=== PATIENT | female | born 1990 | race Caucasian/White ===

== ENCOUNTER 2016-07-26 23:30 | Inpatient (IN) | payer MEDICAID, OTHER ==
[~2016-07-26] VITALS: Ht 157.5 cm; Wt 72.1 kg
[2016-07-26] MEDS ORDERED: SODIUM CHLORIDE 0.9% 1,000 ML IV ONE (23:58)
[2016-07-26] MEDS ORDERED: MORPHINE SULFATE 4 MG/ML CPJ (NOT FOR IM USE) IV STA (23:58)
[2016-07-26] MEDS ORDERED: ONDANSETRON HCL 4MG/2ML VIAL IV STA (23:58)
[2016-07-27] MEDS ORDERED: VANCOMYCIN 1 G PREMIX 200 ML IV ONE
[2016-07-27] MEDS ORDERED: PIPERACILLIN/TAZ 3.375G PREMIX 50 ML IV ONE
[2016-07-27 00:20] LABS: HEMATOCRIT. 42.8 % (36.0-48.0); HEMOGLOBIN. 14.7 g/dL (12.0-16.0); MEAN CORPUSCULAR HEMOGLOBIN 29.9 pg (28.0-32.0); MEAN CORPUSCULAR VOLUME 86.9 fL (81.0-99.0); MEAN PLATELET VOLUME 7.9 fl (7.4-10.4); PLATELET 276 x1000/uL (130-400); RED BLOOD CELL COUNT 4.93 mill/uL (4.2-5.4); RED CELL DISTRIBUTION WIDTH 14.2 % (11.6-14.6)
[2016-07-27 00:27] LABS: PROTHROMBIN TIME 9.9 sec
[2016-07-27 00:34] LABS: CHLORIDE 99 mEq/L (98-107)
[2016-07-27 00:43] LABS: CARBON DIOXIDE 25 mEq/L (21-32)
[2016-07-27 00:51] LABS: PLATELET ESTIMATE NORMAL
[2016-07-27] MEDS ORDERED: SODIUM CHLORIDE 0.9% 1000ML BAG (SEPSIS BOLUS) IV ONE (04:15)
[2016-07-27 08:37] VITALS: BP 115/82
[2016-07-27 09:45] VITALS: BP 150/82
[2016-07-27] MEDS ORDERED: LORAZEPAM 2MG/ML CPJ IV PRN (10:15)
[2016-07-27] MEDS ORDERED: TRAMADOL 50MG TABLET PO PRN (10:15)
[2016-07-27] MEDS ORDERED: ZOLPIDEM TARTRATE 5MG TABLET PO PRN (10:15)
[2016-07-27] MEDS ORDERED: GUAIFENESIN 200MG/10ML SUGAR FREE UDC PO PRN (10:15)
[2016-07-27] MEDS ORDERED: MAGNESIUM/ALUMINUM HYDROXIDE/SIMETHICONE 30ML UDC PO PRN (10:15)
[2016-07-27] MEDS ORDERED: CLONIDINE 0.1MG TABLET PO PRN (10:15)
[2016-07-27] MEDS ORDERED: DIPHENHYDRAMINE 50MG/ML VIAL IV PRN (10:15)
[2016-07-27] MEDS ORDERED: IPRATROPIUM/ALBUTEROL 0.5-3(2.5)MG/3ML NEB INH PRN (10:15)
[2016-07-27] MEDS ORDERED: ONDANSETRON HCL 4MG/2ML VIAL IV PRN (10:15)
[2016-07-27 11:32] LABS: BASOPHILS % 0.2 % (0.0-2.0); EOSINOPHILS % 0.4 % (0.0-5.0); HEMATOCRIT. 35.2 % (36.0-48.0); HEMOGLOBIN. 11.8 g/dL (12.0-16.0); LYMPHOCYTES % 8.9 % (20.0-50.0); MEAN CORPUSCULAR HEMOGLOBIN 29.4 pg (28.0-32.0); MEAN CORPUSCULAR VOLUME 87.9 fL (81.0-99.0); MEAN PLATELET VOLUME 7.3 fl (7.4-10.4); MONOCYTES % 6.3 % (2.0-8.0); NEUTROPHILS % 84.2 % (40.0-76.0); PLATELET 221 x1000/uL (130-400); RED CELL DISTRIBUTION WIDTH 14.4 % (11.6-14.6)
[2016-07-27 11:47] LABS: CARBON DIOXIDE 27 mEq/L (21-32); CHLORIDE 107 mEq/L (98-107)
[2016-07-27 12:00] VITALS: BP 119/72
[2016-07-27] MEDS: DEXT 5%/0.45% NACL 1000ML 1,000 ML IV SCH (13:17)
[2016-07-27] MEDS ORDERED: VANCOMYCIN 1250MG in DEXTROSE 5% WATER 250ML IV NR (14:00)
[2016-07-27] MEDS: PIPERACILLIN SODIUM/TAZOBACTAM 4.5 G in DEXT 5% WATER 100 ML IV SCH ×2 (14:06→20:49)
[2016-07-27] MEDS ORDERED: SODIUM CHLORIDE 0.9% 10ML VIAL ONE (14:15)
[2016-07-27] MEDS ORDERED: IOHEXOL-350 100 ML BOTTLE ONE (14:15)
[2016-07-27 16:00] VITALS: BP 112/63
[2016-07-27 20:00] VITALS: BP 127/82
[2016-07-27] MEDS: ASCORBIC ACID 500 MG TABLET PO SCH (20:49)
[2016-07-27 21:40] LABS: *BARBITURATES SCREEN URINE NEGATIVE (NEGATIVE); *BENZODIAZEPINES SCREEN URINE NEGATIVE (NEGATIVE); *COCAINE SCREEN URINE NEGATIVE (NEGATIVE); METHADONE URINE SCREEN NEGATIVE (NEGATIVE); OPIATES URINE SCREEN NEGATIVE (NEGATIVE); PHENCYCLIDINE URINE SCREEN NEGATIVE (NEGATIVE)
[2016-07-27 21:44] LABS: *AMPHETAMINES SCREEN URINE PRESUMTIVE POSITIVE (NEGATIVE); CANNABINOID URINE SCREEN PRESUMTIVE POSITIVE (NEGATIVE)
[2016-07-27] MEDS: VANCOMYCIN 1 G PREMIX 200 ML IV SCH (22:28)
[2016-07-28] VITALS: BP 126/75
[2016-07-28] MEDS: PIPERACILLIN SODIUM/TAZOBACTAM 4.5 G in DEXT 5% WATER 100 ML IV SCH ×4 (02:12→20:16)
[2016-07-28] MEDS: DEXT 5%/0.45% NACL 1000ML 1,000 ML IV SCH ×2 (02:12→21:21)
[2016-07-28 04:00] VITALS: BP 117/64
[2016-07-28] MEDS: VANCOMYCIN 1 G PREMIX 200 ML IV SCH ×5 (05:30→21:20)
[2016-07-28] MEDS: ZINC SULFATE 220 MG ( 50 ) CAPSULE PO SCH (08:56)
[2016-07-28] MEDS: ACETAMINOPHEN 325MG TABLET PO PRN ×2 (08:56→17:42)
[2016-07-28] MEDS: ASCORBIC ACID 500 MG TABLET PO SCH ×2 (08:57→20:02)
[2016-07-28] MEDS: PANTOPRAZOLE SODIUM 40 MG/VIAL IV SCH (08:57)
[2016-07-28 09:11] VITALS: BP 101/67
[2016-07-28 12:20] VITALS: BP 132/78
[2016-07-28 12:42] LABS: BASOPHILS % 0.2 % (0.0-2.0); EOSINOPHILS % 0.8 % (0.0-5.0); HEMATOCRIT. 32.5 % (36.0-48.0); HEMOGLOBIN. 10.9 g/dL (12.0-16.0); LYMPHOCYTES % 10.4 % (20.0-50.0); MEAN CORPUSCULAR HEMOGLOBIN 29.7 pg (28.0-32.0); MEAN CORPUSCULAR VOLUME 88.8 fL (81.0-99.0); MEAN PLATELET VOLUME 7.4 fl (7.4-10.4); MONOCYTES % 6.4 % (2.0-8.0); NEUTROPHILS % 82.2 % (40.0-76.0); PLATELET 207 x1000/uL (130-400); RED BLOOD CELL COUNT 3.66 mill/uL (4.2-5.4); RED CELL DISTRIBUTION WIDTH 14.4 % (11.6-14.6)
[2016-07-28 13:11] LABS: CARBON DIOXIDE 26 mEq/L (21-32); CHLORIDE 108 mEq/L (98-107); VANCOMYCIN TROUGH 18.9 ug/mL (5.0-10.0)
[2016-07-28 16:00] VITALS: BP 128/67
[2016-07-28] MEDS: KETOROLAC 30MG/ML VIAL IV PRN (19:52)
[2016-07-28 20:00] VITALS: BP 134/83
[2016-07-29] VITALS: BP 99/58
[2016-07-29] MEDS: ACETAMINOPHEN 325MG TABLET PO PRN (00:41)
[2016-07-29] MEDS: PIPERACILLIN SODIUM/TAZOBACTAM 4.5 G in DEXT 5% WATER 100 ML IV SCH ×2 (02:01→08:53)
[2016-07-29] MEDS: KETOROLAC 30MG/ML VIAL IV PRN ×2 (02:02→08:53)
[2016-07-29 04:00] VITALS: BP 114/72
[2016-07-29] MEDS: VANCOMYCIN 1 G PREMIX 200 ML IV SCH (06:11)
[2016-07-29] MEDS: PANTOPRAZOLE SODIUM 40 MG/VIAL IV SCH (08:53)
[2016-07-29] MEDS: ASCORBIC ACID 500 MG TABLET PO SCH (08:54)
[2016-07-29] MEDS: ZINC SULFATE 220 MG ( 50 ) CAPSULE PO SCH (08:54)
[2016-07-29 10:21] VITALS: BP 115/75
== END 2016-07-29 11:30 | disposition home or self-care (01) | DRG 383 ==
LOC: ER 23:31 → 5WST 07-27 05:12
PROVIDERS: ADMIT Internal Medicine; ATTEND Internal Medicine
DX: L03.114 Cellulitis of left upper limb (principal); E87.2 Acidosis; E44.0 Moderate protein-calorie malnutrition; E87.1 Hypo-osmolality and hyponatremia; F15.10 Other stimulant abuse, uncomplicated; F17.210 Nicotine dependence, cigarettes, uncomplicated; F19.10 Other psychoactive substance abuse, uncomplicated; L30.9 Dermatitis, unspecified; Z68.29 Body mass index [BMI] 29.0-29.9, adult; Z71.51 Drug abuse counseling and surveillance of drug abuser
CPT/HCPCS: 36415; 73206; 73220; 80053; 80202; 80305; 81025; 83036; 83605; 85025; 85610; 87040; 96365; 96367; 96375; 99285; A4216; C9113; J1200; J1885; J2270; J2405; J2543; J3370; J3490; J7030; J7060; Q9967

== ENCOUNTER 2017-11-06 16:55 | Observation (INO) | payer OTHER ==
[~2017-11-06] VITALS: Ht 157.5 cm; Wt 80.7 kg
== END 2017-11-06 18:15 | disposition home or self-care (01) ==
LOC: L&D 16:55
PROVIDERS: ADMIT Specialist; ATTEND Specialist
DX: O36.8120 Decreased fetal movements, second trimester, not applicable or unspecified (principal); Z3A.21 21 weeks gestation of pregnancy
CPT/HCPCS: 99281; G0378

== ENCOUNTER 2019-12-19 05:28 | Emergency (ER) | payer MEDICAID, OTHER ==
[~2019-12-19] VITALS: Ht 157.5 cm; Wt 82.0 kg
[2019-12-19] MEDS ORDERED: KETOROLAC 30MG/ML VIAL IV STA (06:38)
[2019-12-19] MEDS ORDERED: ONDANSETRON HCL 4MG/2ML INJ IV STA ×2 (06:38→07:31)
[2019-12-19] MEDS ORDERED: SODIUM CHLORIDE 0.9% 1,000 ML IV ONE (06:45)
[2019-12-19 06:53] LABS: BASOPHILS % 0.7 % (0.0-2.0); EOSINOPHILS % 1.7 % (0.0-5.0); HEMATOCRIT. 40.7 % (36.0-48.0); HEMOGLOBIN. 13.8 g/dL (12.0-16.0); LYMPHOCYTES % 16.5 % (20.0-50.0); MEAN CORPUSCULAR HEMOGLOBIN 29.8 pg (28.0-32.0); MEAN CORPUSCULAR VOLUME 87.9 fL (81.0-99.0); MEAN PLATELET VOLUME 8.3 fl (7.4-10.4); MONOCYTES % 7.5 % (2.0-8.0); NEUTROPHILS % 73.6 % (40.0-76.0); PLATELET 344 x1000/uL (130-400); RED BLOOD CELL COUNT 4.64 mill/uL (4.2-5.4)
[2019-12-19 06:54] LABS: CHLORIDE 103 mEq/L (98-107)
[2019-12-19 06:58] LABS: PROTHROMBIN TIME 10.3 sec (9.6-11.0)
[2019-12-19 07:28] LABS: HCG SCREEN NEGATIVE
[2019-12-19] MEDS ORDERED: MORPHINE SULFATE 4 MG/ML CPJ (NOT FOR IM USE) IV STA (07:31)
[2019-12-19 07:36] LABS: CLARITY URINE CLOUDY (CLEAR); COLOR URINE YELLOW (YELLOW); KETONES URINE NEGATIVE (NEGATIVE); LEUKOCYTE ESTERASE URINE 1+ (NEGATIVE); NITRITE URINE POSITIVE (NEGATIVE); OCCULT BLOOD URINE TRACE (NEGATIVE); PROTEIN URINE NEGATIVE (NEGATIVE); SPECIFIC GRAVITY URINE 1.032 (1.005-1.030); UROBILINOGEN URINE 0.2 E.U./dL (0.2-1.0)
[2019-12-19] MEDS ORDERED: CEFTRIAXONE 1 G PREMIX 50 ML IV ONE (08:30)
[2019-12-19 12:03] VITALS: BP 110/78
== END 2019-12-19 12:03 | disposition home or self-care (01) ==
LOC: ER 05:28
DX: Z98.890 Other specified postprocedural states (principal); N83.209 Unspecified ovarian cyst, unspecified side
CPT/HCPCS: 36415; 74176; 76830; 76856; 80053; 81003; 81025; 83690; 84703; 85025; 85610; 93005; 96361; 96365; 96375; 99285; J0696; J1885; J2270; J2405; J7030

== ENCOUNTER 2022-05-13 20:12 | Emergency (ER) | payer MEDICAID ==
[~2022-05-13] VITALS: Ht 157.5 cm; Wt 82.0 kg
[2022-05-13 23:22] LABS: BASOPHILS % 0.3 % (0.0-2.0); EOSINOPHILS % 3.2 % (0.0-5.0); HEMATOCRIT. 38.6 % (36.0-48.0); HEMOGLOBIN. 13.3 g/dL (12.0-16.0); LYMPHOCYTES % 10.3 % (20.0-50.0); MEAN CORPUSCULAR HEMOGLOBIN 30.8 pg (28.0-32.0); MEAN CORPUSCULAR VOLUME 89.5 fL (81.0-99.0); MEAN PLATELET VOLUME 7.3 fl (7.4-10.4); MONOCYTES % 7.9 % (2.0-8.0); NEUTROPHILS % 78.3 % (40.0-76.0); PLATELET 392 x1000/uL (130-400); RED BLOOD CELL COUNT 4.32 mill/uL (4.2-5.4); RED CELL DISTRIBUTION WIDTH 13.3 % (11.6-14.6)
[2022-05-13 23:31] LABS: CHLORIDE 103 mEq/L (98-107)
[2022-05-13 23:38] VITALS: BP 145/91
[2022-05-13 23:39] LABS: CLARITY URINE CLOUDY (CLEAR); COLOR URINE DARK YELLOW (YELLOW); KETONES URINE TRACE (NEGATIVE); LEUKOCYTE ESTERASE URINE 3+ (NEGATIVE); NITRITE URINE NEGATIVE (NEGATIVE); OCCULT BLOOD URINE 2+ (NEGATIVE); PH URINE 5.5 (4.5-8.0); PROTEIN URINE 1+ (NEGATIVE); SPECIFIC GRAVITY URINE 1.021 (1.005-1.030)
[2022-05-13] MEDS ORDERED: KETOROLAC 30MG/ML VIAL IM ONE (23:45)
[2022-05-13 23:46] LABS: UCG SCREEN NEGATIVE
[2022-05-13] MEDS ORDERED: CEPHALEXIN 250MG CAPSULE PO NR (23:53)
== END 2022-05-14 00:22 | disposition home or self-care (01) ==
LOC: ER 20:12
DX: R10.30 Lower abdominal pain, unspecified (principal); F12.10 Cannabis abuse, uncomplicated; F11.10 Opioid abuse, uncomplicated; Z98.890 Other specified postprocedural states
CPT/HCPCS: 36415; 80053; 81003; 81025; 84484; 85025; 85379; 87086; 96372; 99283; J1885